=== PATIENT | male | born 1965 | race Caucasian/White ===

== ENCOUNTER → 2024-03-25 07:37 | Outpatient (REF) | payer BC, SELFPAY ==
[2024-03-25 10:38] LABS: PSA, Total - Screen 0.94 ng/ml (0.0-4.0)
== END ==
LOC: REG 07:37
PROVIDERS: ATTENDING PHYSICIAN Internal Medicine
DX: Z12.5 Encounter for screening for malignant neoplasm of prostate (principal)
CPT/HCPCS: 36415; G0103

== ENCOUNTER 2024-04-26 15:28 | Inpatient (IN) | payer BC, SELFPAY ==
[2024-04-26] VITALS (15 sets, daily range): BP systolic 151–212; BP diastolic 80–139; BMI 26.5; BMI 31.4
[2024-04-26 11:45] LABS: Glucose - Point of Care 111 mg/dl (70-99)
--- NOTE | 2024-04-26 11:57 | ED.CVA ---
History of Present Illness
General
Chief Complaint: CVA/TIA Symptoms
Source: patient
Exam Limitations: none
Time Seen by Provider: 04/26/24 11:51
Onset of Stroke Symptoms
Onset of symptoms known: Yes
Date of onset of symptoms: 04/25/24
History of Present Illness
History of Present Illness:
See MDM
Past History
Past History
ED Past Medical History: HTN and Other (Asymmetrical goiter)
ED Past Surgical History: Orthopedic and Other (Thyroid)
Social History
Tobacco: Non-smoker
Alcohol: Occasional
Drug: None
Personal:
Living: with family
Phy Exam
Physical Exam
Physical Exam:
See MDM
Scores
NIH Stroke Score
Level of Consciousness: 0 - Alert
LOC Questions: 0-Answers both correctly
LOC Commands: 0-Performs both correctly
Best Horizontal Gaze: 0-Normal
Visual Esposito: 0=Normal, no visual loss
Facial Palsy: 1=Minor paralysis
Motor - Right Arm: 0=No drift 10 seconds
Motor - Left Arm: 0=No drift 10 seconds
Motor - Right Le-No drift 5 seconds
Motor - Left Le-No drift 5 seconds
Limb Ataxia: 0-Absent
Sensation: 0-Normal
Best Language: 0-No aphasia
Dysarthria: 0-Normal
Extinction and Inattention: 0-No abnormality
Total Score:: 1
Course
Orders/Labs/Results
Orders:
Orders
04/26/24 11:38
Electrocardiogram (*1) Urgent
Reason for Study: Other
Other Reason for Exam: Possible Stroke
Bedside Glucose- Treatment ONCE
Cardiac Monitoring- Treatment ONCE
EKG- Treatment ONCE
IV Insert/Care/Rem.- Treatment PRN
Vital Signs As Directed
Frequency: Other
Weight As Directed
Frequency: Once
Comment: ZERO STRETCHER SCALE FOR ACCURATE WEIGHT
04/26/24 11:51
Labetalol HCl [Trandate] 10 mg IV NOW STA
04/26/24 11:55
Alcohol Urgent
Complete Blood Count/With Diff Urgent
Comprehensive Metabolic Panel Urgent
PTT Urgent
Prothrombin Time Urgent
Troponin I Urgent
04/26/24 11:57
CT Head W/o Iv Contrast Urgent
Comment:
Reason For Exam: Dizzy, headache
Abnormal Lab Results
04/26/24 04/26/24
11:44 11:55
Hct 38.7 L %
(39.0-52.0)
RDW 16.2 H %
(11.5-14.5)
Absolute Monos (auto) 0.9 H 10^3/uL
(0.1-0.6)
Lymphocytes % 19.3 L %
(20.5-51.1)
Monocytes % 14.1 H %
(1.7-9.3)
Glucose 113 H mg/dl
(70-99)
POC Glucose 111 H mg/dl
(70-99)
04/26/24 11:55
04/26/24 11:55
Vital Signs
Initial and Last Documented VS:
Initial Vital Signs
Temp Pulse Resp BP Pulse Ox
99.2 F 110 20 206/134 98
04/26/24 11:26 04/26/24 11:26 04/26/24 11:26 04/26/24 11:26 04/26/24 11:26
Last Documented Vital Signs
Temp Pulse Resp BP Pulse Ox
99.2 F 74 21 193/102 97
04/26/24 11:26 04/26/24 13:00 04/26/24 12:00 04/26/24 12:01 04/26/24 12:00
MDM/Problems Addressed
Differential Diagnosis Includes:
HPI and MDM Narrative:
59-year-old male presenting for evaluation of headache and dizziness. Patient states it started yesterday around 3:00 PM or so. I questioned his elevated blood pressure today. Patient states he does not take his medicines. Patient states he is
having trouble walking because he feels 'drunk'
Patient found to be hypertensive. Will give dose of labetalol with concern for hypertension emergency. Will obtain CT to rule out intracranial hemorrhage
Physical exam
General: Well appearing and non-toxic
HEENT: protecting airway. EOMI. Negative Talihina-Hallpike
Neck: supple
CV: No evidence of cyanosis. Regular rate and rhythm
Resp: No accessory muscle use
Abd: Non-distended
Extremities: No deformities
Neuro: alert. Normal finger-nose bilaterally
Psych: Normal affect
Skin: Intact
Problems Addressed including Acute and Chronic Conditions affecting care:
1. Dizziness
Acuity: acute
Prognosis: unstable
Details: Potentially in setting of hypertension emergency or possibly stroke or bleed. Will obtain CT head
2. HTN
Acuity: acute
Prognosis: unstable
Details: Given the concern for hypertension emergency, patient given IV labetalol
Updates
CT does show age-indeterminate stroke in the right. We attempted to ambulate the patient but he has significant left-sided weakness when he tries to walk and appears ataxic. Will admit for further evaluation. Repeat blood pressure after IV
labetalol 170s/90s
Differential Diagnosis (but not limited to): Intracranial hemorrhage, hypertension emergency, CVA
Testing considered: CTA head
Drug therapy (if applicable): OTC meds, please see d/c instruction regarding Rx drugs
Amount and/or Complexity of Data Reviewed
Clinical info obtained from: Patient
External data reviewed: N/A
Labs I independently reviewed (but not limited to): Troponin and electrolytes within normal limits
Radiology: The CT scan was personally and independently reviewed. In addition, official CT report reviewed.
Pulse Ox: not hypoxic
EKG independently reviewed: Sinus rhythm, normal axis, no STEMI
Key Punch Teacher: sinus rhythm
Critical Care: The high probability of a clinically significant, sudden or life threatening deterioration of the neuro cardiovascular system(s) required my full and direct attention, intervention and personal management. The aggregate critical care
time was 33 minutes. This time is in addition to time spent performing reported procedures but includes the following:
[x] Data Review and interpretation
[x] Patient assessment and monitoring of vital signs
[x] Documentation
[x] Medication orders and management
Risk of Complication:
Social Determinants of health: Good social support
Discussed with other providers: Hospitalist
Escalation of Care includes Admit/Obs: Given the concern for ataxia, stroke and hypertension emergency, will admit for further workup
Occasional wrong word or 'sound a like' substitutions may have occurred due to the inherent limitations of voice recognition software. Read the chart carefully and recognize, using context, where substitutions have occurred.
*Critical Care Note
Total Time (30-74mins, 75-104mins- exclusive of procedures): 33 min
ED Attending Note
-
Portions of this chart may have been created with voice recognition software.� Occasional wrong word or��sound alike� substitutions may have occurred due to the inherent limitations of voice recognition software.
Discharge Plan
Departure
Patient Disposition: Admit
Date of Disposition: 04/26/24
Time of Disposition: 13:28
Admit to: Telemetry
Presentation/result/management discussed w/ accepting MD/DO: Hospitalist
Discharge Problem:
Ataxia, HTN (hypertension)
Prescriptions:
No Action
No Current Medications
0
Referrals:
Lili Neff MD [Family Provider] -
Interventions
Interventions:
ED- Pulmonary Assessment Last Done: 04/26/24 12:08
ED- Neurological Assessment Last Done: 04/26/24 12:08
ED- Cardiac Assessment Last Done: 04/26/24 12:08
Discharge Date and Time
Print Language: GEORGIAN
[2024-04-26] MEDS: TRANDATE 10 MG IV (12:01)
--- NOTE | 2024-04-26 12:03 | PHANOTE ---
Addendum entered by Florence Connell 04/26/24 15:18:
called pharmacy and medication filled
on 10/22/23 lisinopril/hctz 2024 daily, aspirin 325mg daily, Celebrex 100mg bid prn, Lipitor 40mg daily and hydralazine 25mg tid
06/17/2023 Benicar 20mg daily
Original Note:
med rec note- patient family provide a list from 2022:
Toprol xl 50mg daily
Allopurinol 300mg daily
Hydralazine 25mg?
Lasix 40mg daily
Lexapro 40mg daily
Celebrex 200mg prn
folic acid 1mg daily
Benicar 20mg daily
Mobic 15mg prn
Spoke to patient he stated that is not taking anything and no medication.
[2024-04-26 12:06] LABS: % Basophils 0.5 % (0-2); % Eosinophils 0.6 % (0-6); % Immature Granulocytes 0.2 % (0-0.5); % Lymphocytes 19.3 % (20.5-51.1); % Monocytes 14.1 % (1.7-9.3); % Neutrophils 65.3 % (42.2-75.2); Absolute Lymphocytes 1.2 10^3/uL (1.2-3.4); Absolute Monocytes 0.9 10^3/uL (0.1-0.6); Absolute Neutrophils 4.1 10^3/uL (1.4-6.5); Hematocrit 38.7 % (39.0-52.0); Hemoglobin 13.4 g/dL (13.0-18.0); Mean Corp Hgb Conc. 34.6 g/dL (33.0-37.0); Mean Corpuscular Hgb 27.7 pg (27.0-31.0); Mean Platelet Volume 8.6 fL (7.4-10.4); Nucleated Red Blood Cells % 0 % (-); Platelet Count 202 10^3/uL (130-400); Red Blood Cell Count 4.84 10^6/uL (4.70-6.10); Red Cell Dist. Width 16.2 % (11.5-14.5); White Blood Cell Count 6.3 10^3/uL (4.8-10.8)
[2024-04-26 12:18] LABS: ALT (SGPT) 30 U/L (0-50); AST (SGOT) 35 U/L (17-59); Albumin 4.9 g/dl (3.5-5.0); Alkaline Phosphatase 80 U/L (38-126); Blood Urea Nitrogen 18 mg/dl (9-20); Calcium 9.6 mg/dl (8.4-10.2); Carbon Dioxide 22 mmol/L (22-30); Chloride 104 mmol/L (98-107); Estimated Creatinine Clearance 82 ml/min; Glucose 113 mg/dl (70-99); Potassium 4.3 mmol/L (3.5-5.1); Sodium 136 mmol/L (135-145); Total Bilirubin 0.6 mg/dl (0.2-1.3); Total Protein 7.5 g/dl (6.3-8.2); eGFR > 60.00
[2024-04-26 12:20] LABS: Alcohol None Detected
[2024-04-26 12:21] LABS: INR 0.98
[2024-04-26 12:22] LABS: APTT 24.8 Sec (23.4-35.0)
[2024-04-26 12:28] LABS: Troponin I < 0.012 ng/ml
--- NOTE | 2024-04-26 14:37 | HPS.HSE ---
Family Physician
-
Family Physician: Lili Neff MD
Chief Complaint
-
Dizziness started a week
History of Present Illness
59 male with a history of noncompliance, uncontrolled hypertension and high cholesterol who is presenting with a 1.5-day history of left-sided weakness and dizziness that began yesterday while at work. Thought it was related to the heat therefore
went home and slept when he woke up this morning he was driving to work symptoms reoccurred and this time associated left-sided weakness dizziness and when he got out of his car he felt like he was falling to the left when ambulating. Unsteady on
his feet. No history of this in the past. Quit smoking 30 years ago. Drinks 2 beers every couple of days. No drug use history noted.
Mother no medical condition. Father colorectal cancer, heart disease
Past surgical history hip repair�left-sided November 03
He is supposed to be on
Toprol 50 mg daily
Allopurinol 300 mg daily
Hydralazine 25 mg unclear as to frequency
Lasix 40 mg daily
Lexapro 40 mg daily
Celebrex 200 mg as needed
Folic acid 1 mg daily
Benicar 20 mg daily
Mobic 15 mg as needed
-However he takes these medications infrequently
In the ED he was found to have a blood pressure in the 2 trades improved after 1 dose of 10 mg IV labetalol. . CBC unremarkable. BMP unremarkable. EKG sinus rhythm with a SADNI of 158, without significant ST-T wave Changes. CT brain small
age-indeterminate infarct within the right basal ganglia extending to the javier radiata. Mild periventricular chronic white matter disease.
Works as a vehicle painter taking really
Medical History
Past Medical History
Past Medical History: Reports HTN and Hypercholesterolemia
Past Surgical History: Reports Orthopedic
Social History
Tobacco: Former Smoker
Alcohol: Occasional
Drug: None
Family History
Family History: CAD and Other (father crc)
Allergies / Home Medications
Allergies reflects when Allergies were last updated in [facility].
Home Medications with original date entered in [facility]
Allergy/Medication List:
Allergies
Allergy/AdvReac Type Severity Reaction Status Date / Time
No Known Allergies Allergy Unverified 05/05/13 22:51
Home Medications
No Meds [No Current Medications] 04/26/24
Review of Systems
-
A 12 point ROS was completed and negative except as noted: Yes
Physical Exam
Vital Signs
Vital Signs
Temp Pulse Resp BP Pulse Ox
99.2 F 74 20 177/109 96
04/26/24 11:26 04/26/24 14:00 04/26/24 14:00 04/26/24 14:00 04/26/24 14:00
NAD, resting comfortably in bed
Scleral anicteric
Moist mucous membranes
No JVD
CTA bilateral
Normal S1-S2 no murmurs
Soft nontender nondistended bowel sounds active
No peripheral pitting edema
Moves extremities spontaneously
AAOx3, uvula deviated to left side, unable to shrug left shoulder, left side of [id number] dysmetria noted, poor [id number], 4/5 motor strength in left side weaker than the right side. Able to open left eyelid easily when squeezed tightly
Physical Exam
General: Well Developed
Laboratory Results
-
04/26/24 11:55
04/26/24 11:55
Laboratory Results
PT 13.0 Sec (11.4-14.6) 04/26/24 11:55
INR 0.98 04/26/24 11:55
APTT 24.8 Sec (23.4-35.0) 04/26/24 11:55
Total Bilirubin 0.6 mg/dl (0.2-1.3) 07/17/24 11:55
AST 35 U/L (17-59) 04/26/24 11:55
ALT 30 U/L (0-50) 04/26/24 11:55
Alkaline Phosphatase 80 U/L (38-126) 04/26/24 11:55
Troponin I < 0.012 ng/ml 04/26/24 11:55
Impression/Plan
-
Acute CVA/TIA
��Not a TNK candidate�symptomatology began more than 24 hours
� Obtain MRI brain and MRA brain
� Lipid profile A1c
� 2D echo with bubble study
� Allow for permissive hypertension
� Neurology consulted
� Neurovascular checks
� Aspirin load as this was not done in the ER followed by daily 81 mg
� Plavix load per neurology recommendations followed by 75 mg daily
� Lipitor high intensity
� Monitor on telemetry
� Stroke protocol
� business continuity coordinator
� PT OT
Hypertensive urgency
� Allow for permissive hypertension, decrease MAP by 25% in the next 23hrs
� Start HCTZ low-dose
� Monitor on tele
Non-compliance
� Stressed medication compliance
DVT ppx
� LMWH
[2024-04-26] MEDS: ORETIC 12.5 MG PO (15:53)
[2024-04-26] MEDS: ASPIRIN 325 MG PO (15:53)
[2024-04-26] MEDS: PLAVIX 300 MG PO (16:00)
[2024-04-26] MEDS: LIPITOR 40 MG PO (16:53)
[2024-04-26] MEDS: COZAAR 25 MG PO (16:53)
--- NOTE | 2024-04-26 17:14 | PTCARENOTE ---
Received patient from ED on stretcher. Patient ambulated to bed with assistance x1. He has left sided weakness and is unsteady. Patient has language barrier. He speaks Turkish but knows some South Sudanese. NIH score of 3 for facial droop and ataxia
left side. MRI called for him as soon as he came to unit for MRI of brain. Obtained patient's BP prior to going to MRI bp 172/111. Medicated patient with 25 mg labetalol po as ordered prior to transporting patient to MRI.
[2024-04-26] MEDS: LOVENOX 40 MG SC (18:28)
--- NOTE | 2024-04-26 19:00 | PTCARENOTE ---
Patient back from MRI BP 210/103. Dr. Urban notified. Order obtained for IV hydralazine. If BP does not improve Dr. Urban wants patient to be transferred to ICU.
[2024-04-26] MEDS: APRESOLINE 10 MG IV (19:33)
[2024-04-26] MEDS: FLUSH (NSS) 1 FLUSH IV (19:33)
[2024-04-26 21:20] LABS: ALT (SGPT) 28 U/L (0-50); AST (SGOT) 33 U/L (17-59); Albumin 4.6 g/dl (3.5-5.0); Alkaline Phosphatase 77 U/L (38-126); Blood Urea Nitrogen 17 mg/dl (9-20); Calcium 9.7 mg/dl (8.4-10.2); Carbon Dioxide 23 mmol/L (22-30); Chloride 101 mmol/L (98-107); Estimated Creatinine Clearance 93 ml/min; Glucose 114 mg/dl (70-99); Potassium 3.8 mmol/L (3.5-5.1); Sodium 136 mmol/L (135-145); Total Bilirubin 0.9 mg/dl (0.2-1.3); Total Protein 7.3 g/dl (6.3-8.2); eGFR > 60.00
[2024-04-26 23:29] LABS: Glucose - Point of Care 131 mg/dl (70-99)
[2024-04-27] VITALS (16 sets, daily range): BP systolic 113–163; BP diastolic 63–132; PULSE 88; O2SAT 96–97; BMI 31.1
--- NOTE | 2024-04-27 03:55 | PTCARENOTE ---
NIHS 6 overnight;Left facial droop/left arm& leg drift/ataxia/aphasia/ very mild dysarthria. Pt able to communicate in Azeri, but has difficultly with certain words. Denies any pain. Pt ambulated to with two person assist; gait unsteady. SB/NSR
on tele; hypertensive urgency resolved shortly after change of shift. Plan for Echo, PT/OT/ST, neuro c/s. Call antonio and tray table left within reach. Bed alarm set for safety.
[2024-04-27 04:49] LABS: Hematocrit 39.9 % (39.0-52.0); Hemoglobin 13.7 g/dL (13.0-18.0); Mean Corp Hgb Conc. 34.3 g/dL (33.0-37.0); Mean Corpuscular Hgb 27.7 pg (27.0-31.0); Mean Corpuscular Volume 80.6 fL (80.0-94.0); Mean Platelet Volume 8.9 fL (7.4-10.4); Platelet Count 186 10^3/uL (130-400); Red Blood Cell Count 4.95 10^6/uL (4.70-6.10); Red Cell Dist. Width 16.3 % (11.5-14.5); White Blood Cell Count 5.7 10^3/uL (4.8-10.8)
[2024-04-27 05:10] LABS: HDL Cholesterol 57 mg/dl; LDL Cholesterol, Calculated 128 mg/dl; Total Cholesterol 219 mg/dl (50-199); Triglyceride 174 mg/dl (10-149); Very Low Density Lipoprotein 34 mg/dl (0-30)
--- NOTE | 2024-04-27 07:51 | PTCARENOTE ---
Patient left arm and left leg are weaker this morning. VS stable overnight. Last BP 155/83. NIH score of 6 at change of shift. Patient remains NPO except for meds and sips. Awaiting speech evaluation. Bed alarm on. Patient alert and oriented
with mild aphagia and language barrier.
--- NOTE | 2024-04-27 08:10 | CON.NEURO4 ---
Consultation - Neurology 4
-
CONSULTING PHYSICIAN: Diogo Gonsales
REFERRING PHYSICIAN: Hospitalist
DICTATED BY: Diogo Gonsales
DATE/TIME OF REQUEST: 04/27/24
DATE/TIME OF CONSULTATION: 04/27/24
Reason for Consultation: Stroke
History of Present Illness:
The patient is a 59-year-old right-handed man with past ministry of hypertension and hyperlipidemia presenting the hospital initially due to headache and dizziness and then developed significant left arm leg and face weakness, symptoms started in
the afternoon of 04/25 initially while working outside in hot weather and these improved but then recurred again but not just dizziness but also left-sided arm leg and face weakness.
No history of stroke or unusual headaches or head or neck trauma recently. He does relate a sibling had had around 3 strokes but not sure what age. He has been intermittently compliant but generally has not been taking medications for blood
pressure does not take any anticoagulants or antiplatelets at baseline.
Currently denies any headache.
Past Medical History: Hypertension, hyperlipidemia
Surgical History: Left hip repair October 2023
Family History: Family history of 3 strokes in a brother but not sure at what age
Social History: and lives with his , working painting and detailing cars, rare alcohol 2 beers about 1-2 times a week, had previously used heavy amount and he stopped this, quit cigarette use about 25-30 years ag o
Allergies: No known drug allergies
Review of Symptoms:
Patient denies any fever, headache, chest pain, shortness of breath, GI or symptoms.
Physical Exam:
Middle-age man appears a stated age well-appearing no signs of head or neck trauma eyes are clear oropharynx is clear heart rate regular breathing unlabored abdomen soft nontender no lower extreme edema rash or joint deformity seen
Neurologic Examination:
Mental status unremarkable good historian and answers all questions appropriately via Lithuanian vaccine customer representative
Cranial nerve examination shows moderate dysarthria and obvious left-sided facial weakness, extraocular movements are full, there is mild left eye ptosis, visual bustamante are intact confrontation bilaterally
Motor examination shows some minimal 3/5 effort against gravity of shoulder abduction arm flexion but at times is only 2/5 strength of left, similarly in the left leg there is minimal effort at x 3/5 against gravity of the left leg but at other
times and only able to give 2/5 movement of the left hip and thigh abduction/abduction.
Intact grossly to light touch noxious stimulation and pinprick
Reflexes 2+ symmetric biceps triceps brachialis patella and Achilles Babinski is negative
Unable to evaluate finger-nose testing on the left arm due to weakness
Neuro Imaging:
Brain MRI/MRA head neck: with acute right-sided pontine ischemic stroke without any hemorrhage, there is a chronic right basal ganglia significant far, mild chronic small vessel ischemic disease in the white matter of the hemispheres, no
significant intracranial occlusions or stenosis is seen, no significant carotid stenosis seen
Impressions
1. Acute right-sided pontine ischemic stroke as cause of his presenting symptoms. Presumed etiology is small vessel disease given uncontrolled risk factors of hypertension as his predominant risk factor. Absence of significant large vessel
atherosclerosis on CTA of the head and neck argues against large vessel atherosclerosis as cause, location and appearance is not typical for cardioembolic stroke
2. Not uncommon to have worsening of symptoms over time of lacunar type strokes in the kennedy, oftentimes is the natural history of these types of strokes. Do not suspect hemorrhagic conversion and CTA with no severe vertebrobasilar stenosis
3. Uncontrolled hypertension at baseline
Recommendations:
1. For blood pressure management would aim for less than 180 systolic for maximum blood pressure but would avoid rapid normalization of blood pressures given the recent ischemic stroke and baseline uncontrolled hypertension, acceptable to go slow
in getting blood pressures to a lower range
2. NIH and neurologic check
3. Speech therapy aspiration precaution
4. Mobilization as able physical and Occupational Therapy evaluations anticipate will be acute rehabilitation candidate
5. Emphasized the importance of high blood pressure medication compliance as main contributor to ischemic stroke
6. Aspirin and clopidogrel DAPT therapy for total of 21 days and then discontinue clopidogrel and continue on aspirin monotherapy alone indefinitely
7. Atorvastatin 40 mg daily, LDL noted to be 128 proceed less than 70 for long-term goal
8. Cardiac telemetry and TTE, do not anticipate he will need further cardiac monitoring after hospitalization
Will follow
Discussed patient care with: Patient, hospitalist
[2024-04-27] MEDS: PLAVIX 75 MG PO (08:26)
[2024-04-27] MEDS: COZAAR 25 MG PO (08:26)
[2024-04-27] MEDS: LOW STRENGTH ASPIRIN 81 MG PO (08:26)
[2024-04-27 10:18] LABS: Glycohemoglobin (HgbA1c) 6.1 % (4.0-5.6)
--- NOTE | 2024-04-27 11:36 | CM ---
Slovenian/Estonian speaking patient with Dx Acute CVA, Hypertensive urgency. Room air. PT & OT recommend acute rehab.
Met with patient, and spoke with Janelle and daughter Xiomara ( L&D nurse) by phone;
the patient was A/O with some limited Estonian but was conversational.
the patient resides with his in a 2 story townhouse.
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
The patient was independent in ADLs and ambulation without using any assistive devices.
DME - RW, SPC, w/c, raised toilet seat, crutches
VN - prior VN, unsure of agency
No prior SNF.
PCP - Lili Neff
Pharmacy - [facility]
stated patient was recently on disability for his hip surgery. She had questions about reapplying for short term or long term care phlebotomist disability. CM advised her to contact patient's employer and that PCP will most likely be helpful in completing
disability paperwork.
Discussed patient's current mobility as per PT/OT. Patient, & daughter are possibly interested in [facility].
Message to Dr Jasbir Urban requesting Physiatry Consult.
Spoke with Fredis Jorge Liaison; discussed patient status, referral placed.
Plan follow up after seen by Physiatry.
--- NOTE | 2024-04-27 11:37 | PTOTSP ---
RESERVATIONS MANAGER Evaluations
Suspect oral/pharyngeal stages of swallowing WFL based on clinical bedside swallowing evaluation. Patient reported a history concerning for reflux.
Family report mild motor speech changes in Kiswahili (primary language). Language (reading/writing/speaking/understanding) in Kiswahili was functional for tasks assessed with use of straight pin making machine operator.
Recommend:
1. Regular, Thin Liquids
2. Medications as best tolerated
3. Strategies: upright to 90 degrees, check for pocketing on left and use liquid wash/clean digital or lingual sweep to clear, reflux precautions
4. Will follow up at the acute care level for dysphagia tx and to test higher level speech/language/cognition as appropriate.
--- NOTE | 2024-04-27 13:54 | W.PN.HOSP.TC ---
Today's Communication/Plan
-
Personally discussed with neurology worsening left-sided upper extremity weakness. Likely secondary to basal ganglia infarct. Typically continues to get worse until starts getting better. If noted any further changes may need to repeat CT scan to
rule out evolving/bleed.
Acute CVA/TIA
��Not a TNK candidate�symptomatology began more than 24 hours
� MRI/A as below
� A1c 6.1
� 2D echo with bubble study pending
� Allow for permissive hypertension
� Neurology following
� Neurovascular checks, aspiration precautions
� Daily 81 mg
� Plavix 75 mg daily
� Lipitor high intensity
� Monitor on telemetry
� PT OT rec AIR, PMnR consulted
Hypertensive urgency
� Allow for permissive hypertension, decrease MAP by 25% in the next 23hrs
� Started HCTZ low-dose and ARB
� Monitor on tele
Non-compliance
� Stressed medication compliance
DVT ppx
� LMWH
MRI Brain
IMPRESSION: There is a focal area of acute to subacute infarction within the mid to anterior aspect of the right paramedian kennedy.
Region of old infarction involving the right lentiform nucleus and javier radiata. 2 mm focus of old infarction versus prominent perivascular space in the posterior aspect of the left lentiform nucleus.
Two foci of decreased signal intensity on T2 gradient echo sequence, compatible with old hemorrhage as described.
Mild to moderate atrophy, advanced for the patient's age of 59 years. Mild to moderate T2 and FLAIR white matter hyperintensities, commonly seen with aging and usually attributed to small vessel ischemic disease
MRI Neck
IMPRESSION: There is mild motion artifact, slightly limiting resolution.
No significant narrowing identified involving the common carotid arteries, carotid bulbs, or proximal internal carotid arteries bilaterally. No significant narrowing of the cervical or intracranial portions of the internal carotid arteries
bilaterally.
No significant narrowing of the vertebral or basilar arteries.
Percent stenosis is calculated using NASCET criteria.
MRA Head
IMPRESSION: No significant narrowing involving the anterior circulation.
Tortuosity of the superior right vertebral artery. No significant narrowing of the vertebral or basilar arteries.
Asymmetric diminished flow within the distal P2 and P3 branches of the right posterior cerebral artery when compared to the left. Diminished flow within the posterior distal branches of the posterior cerebral arteries bilaterally
Head CT
IMPRESSION:
Small, age-indeterminate infarct within the RIGHT basal ganglia extending into the javier radiata.
Mild periventricular chronic white matter disease.
Assessment / Plan
Assessment / Plan
NAD, resting comfortably in bed
Scleral anicteric
Moist mucous membranes
No JVD
CTA bilateral
Normal S1-S2 no murmurs
Soft nontender nondistended bowel sounds active
No peripheral pitting edema
Moves extremities spontaneously
AAOx3, uvula deviated to left side, unable to shrug left shoulder, slight movement of left arm, was able to life left leg up slightly. 4/5 motor strength in left side weaker than the right side. Able to open left eyelid easily when squeezed tightly
Anticipated Discharge: 24 - 48 hours
Subjective/Interval History
-
Date of Service: April 27, 2024
Seen and examined. Sitting in bedside chair eating breakfast when I saw him.
Objective Data
-
Labs:
Laboratory Results
04/27/24
04:26
WBC 5.7
Hgb 13.7
Hct 39.9
Plt Count 186
Vital Signs:
Vital Signs
Temp Pulse Resp BP Pulse Ox
98.1 F 92 16 163/88 96
04/27/24 11:42 04/27/24 10:30 04/27/24 10:30 04/27/24 10:27 04/27/24 10:30
--- NOTE | 2024-04-27 14:32 | PTCARENOTE ---
Echo with Bubble study completed per protocol, pt tolerated procedure well. Left Antecubital Iv site clear, no redness, no edema. Procedure completed with aseptic technique. No change in status.
--- NOTE | 2024-04-27 14:33 | CARDSERVLU ---
Echocardiogram with Lumason completed after protocol screening completed. Allergies verified.
Patent IV site: _Left antecubital IV site clear____
IV site flushed with 0.9% NaCl pre and post administration.
Diluted bolus method utilized to enhance visualization of ventricular blanco.
Total volume given: _6___ mL
Patient tolerated all procedures well without complications.
Note- Lumason given after Bubble Study, Bubbles had disapated prior to Lumason Given IV. Pt tolerated procedure well.
[2024-04-27] MEDS: LOVENOX 40 MG SC (17:43)
[2024-04-27] MEDS: LIPITOR 40 MG PO (17:43)
[2024-04-27] MEDS: NSS 500 IV (18:18)
--- NOTE | 2024-04-27 18:45 | PTCARENOTE ---
Patient tachycardic this afternoon 100-129, patient also diaphoretic. Patient denied having any symptoms. MD made aware. ECG obtained and order obtained for NSS bolus. Patient HR now in the 90's, last BP 147/91. Patient currently resting in
bed. in room at bedside.
--- NOTE | 2024-04-27 20:19 | PTCARENOTE ---
[facility] 7. Traffic Administrator #[id number] utilized for translation. Pt drinks 2-3 times a week beer currently, but does admit to a history of 'alcohol problems from family issues'. Pt reports he never had ETOH withdrawl symptoms. Reminded on aspiration
precautions, and plan of care. Pt did not have any questions for me at this time. Reminded to use the call antonio and fall precautions. Call antonio and tray table within reach.
[2024-04-28] VITALS (14 sets, daily range): BP systolic 118–160; BP diastolic 79–99; PULSE 114; O2SAT 94–95; BMI 30.9
--- NOTE | 2024-04-28 07:57 | PTCARENOTE ---
Pt AAO aspiration precautions in place lungs are diminished .Pt on 2lO2 during night hours due to being apnic. L facial droopL sided weakness.
--- NOTE | 2024-04-28 08:44 | W.PN.NEURO.1 ---
Today's Communication / Plan
-
-Aspirin clopidogrel DAPT therapy for 21 days, end date of clopidogrel 05/16 and continue on aspirin
-Atorvastatin 40 mg daily, LDL 128
-Pursue slow improvement of blood pressures, aiming for less than 180 systolic as maximum, given longstanding uncontrolled hypertension would avoid aggressive IV treatments of hypertension unless greater than 180 or 200 systolic
-Speech, PT/OT, anticipate acute rehab candidate PMR consult
-Aspiration precautions
-No need for cardiac monitoring after discharge, continue telemetry while inpatient
-Neurology follow up in 4-6 weeks outpatient
Will follow as needed call with questions and concerns
Neuro Assessment/Plan
Assessment
Acute right sided pontine ischemic infarction, chronic right basal ganglia infarct most likely asymptomatic from this
LDL 128
Some evidence of intracranial atherosclerosis on COMBAT CONTROL MANAGER arteries bilaterally on MRA head, asymptomatic from this
TTE with LVH supporting uncontrolled hypertension
Etiology of stroke is presumed small vessel disease from uncontrolled hypertension
Has 2/5 to 3/5 at best strength on left arm and leg, will show improvement with time but may have long term care social worker weakness on left side
Subjective/Objective
Subjective Data
Date of Service: April 28, 2024
No acute events, no complaints, no chest pain or dyspnea, no headache, tolerating diet
Objective Data
Vital Signs
Temp Pulse Resp BP Pulse Ox
98.2 F 61 15 138/85 95
04/28/24 07:10 04/28/24 06:00 04/28/24 06:00 04/28/24 06:00 04/28/24 05:45
Lab Results
04/27/24 04:26
04/26/24 20:55
PT 13.0 Sec (11.4-14.6) 04/26/24 11:55
INR 0.98 04/26/24 11:55
APTT 24.8 Sec (23.4-35.0) 04/26/24 11:55
Sodium 136 mmol/L (135-145) 04/26/24 20:55
Potassium 3.8 mmol/L (3.5-5.1) 04/26/24 20:55
BUN 17 mg/dl (9-20) 04/26/24 20:55
Glucose 114 mg/dl (70-99) H 04/26/24 20:55
Calcium 9.7 mg/dl (8.4-10.2) 04/26/24 20:55
LDL Cholesterol, Calc 128 mg/dl 04/27/24 04:26
Patient Allergies
No Known Allergies Allergy (Unverified 05/05/13 22:51)
Review of Systems
-
History Source: Patient
All other systems: Reviewed and negative
Constitutional: No Symptoms
EENT: No Symptoms Reported
Respiratory: No Symptoms
Cardiac: No Symptoms
Abdomen/GI: No Symptoms
Genitourinary: No Symptoms
Musculoskeletal: No Symptoms
Skin: No Symptoms
Neuro: Weakness
Endocrine: No Symptoms
Hematologic / Lymphatic: No Symptoms
Allergy / Immunology: No Symptoms
Physical Exam
-
General: Comfortable
Eyes: No Ptosis
HEENT: Normocephalic
Neck: No Bruits Bilaterally
Respiratory: Clear to Auscultation
Cardiac: Regular Rhythm
GI: Normal Bowel Sounds
Skin: Unremarkable
Extremities: No Clubbing
Psych: Unremarkable
Extended Neurological Exam
Mood & Affect: Mood Unremarkable and Affect Unremarkable
Attention Span & Concentration: Awake, Alert and Interactive
Memory: Unremarkable
Tremor: Hand Tremor Absent
Involuntary Movement: None
Speech: Dysarthric; Negative Expressive Aphasia or Receptive Aphasia
Cranial Nerve II: Left Eye: Pupillary Reactivity Unremarkable and Pupillary Size Unremarkable
Cranial Nerve II: Right Eye: Pupillary Reactivity Unremarkable and Pupillary Size Unremarkable
Cranial Nerves III, IV, : Extraocular Movement: Extraocular Movement Full in all Directions
Cranial Nerve XII: Tongue Protusion: Midline
Muscle Strength, Overall: Other (Left leg 3/5 hip flexion, left arm barely 3/5 left shoulder abduction and arm flexion)
Pronator Drift: Drift in Left Upper Extremity and Drift in Left Lower Extremity
Deep Tendon Reflexes: Trace Throughout
Data Reviewed
-
CT Head: Report Reviewed and Image Reviewed
MRI Head: Report Reviewed and Image Reviewed
MRA Head: Report Reviewed and Image Reviewed
MRA Neck: Report Reviewed and Image Reviewed
Labs: Report Reviewed
[2024-04-28] MEDS: PLAVIX 75 MG PO (08:46)
[2024-04-28] MEDS: LOW STRENGTH ASPIRIN 81 MG PO (08:46)
[2024-04-28] MEDS: COZAAR 25 MG PO (08:46)
--- NOTE | 2024-04-28 10:28 | PTCARENOTE ---
Pt OOB to chair ate breakfast . Pleasant and cooperative
--- NOTE | 2024-04-28 14:26 | W.PN.HOSP.TC ---
Today's Communication/Plan
-
as above
Assessment / Plan
Assessment / Plan
NAD, resting comfortably in bed
Scleral anicteric
Moist mucous membranes
No JVD
CTA bilateral
Normal S1-S2 no murmurs
Soft nontender nondistended bowel sounds active
No peripheral pitting edema
Moves extremities spontaneously
AAOx3, uvula deviated to left side, unable to shrug left shoulder, slight movement of left arm, was able to life left leg up off the ground and hold it about 1ft. 4/5 motor strength in left side weaker than the right side. Able to open left eyelid
easily when squeezed tightly
acute cva
mri confimed cva
continue dapt x3 weeks
per neuro stop plavix on 05/16
conitnue hi statin
pt.ot rec air
htn contineu antihypertensives
Non-compliance
Stressed medication compliance
DVT ppx
LMWH
MRI Brain
IMPRESSION: There is a focal area of acute to subacute infarction within the mid to anterior aspect of the right paramedian kennedy.
Region of old infarction involving the right lentiform nucleus and javier radiata. 2 mm focus of old infarction versus prominent perivascular space in the posterior aspect of the left lentiform nucleus.
Two foci of decreased signal intensity on T2 gradient echo sequence, compatible with old hemorrhage as described.
Mild to moderate atrophy, advanced for the patient's age of 59 years. Mild to moderate T2 and FLAIR white matter hyperintensities, commonly seen with aging and usually attributed to small vessel ischemic disease
MRI Neck
IMPRESSION: There is mild motion artifact, slightly limiting resolution.
No significant narrowing identified involving the common carotid arteries, carotid bulbs, or proximal internal carotid arteries bilaterally. No significant narrowing of the cervical or intracranial portions of the internal carotid arteries
bilaterally.
No significant narrowing of the vertebral or basilar arteries.
Percent stenosis is calculated using NASCET criteria.
MRA Head
IMPRESSION: No significant narrowing involving the anterior circulation.
Tortuosity of the superior right vertebral artery. No significant narrowing of the vertebral or basilar arteries.
Asymmetric diminished flow within the distal P2 and P3 branches of the right posterior cerebral artery when compared to the left. Diminished flow within the posterior distal branches of the posterior cerebral arteries bilaterally
Head CT
IMPRESSION:
Small, age-indeterminate infarct within the RIGHT basal ganglia extending into the javier radiata.
Mild periventricular chronic white matter disease.
Anticipated Discharge: Within 24 hours
Subjective/Interval History
-
Date of Service: April 28, 2024
seen and examined. no new complaints. no acute ovenrifghgt events
sitting in bedside chairs
Objective Data
-
Vital Signs:
Vital Signs
Temp Pulse Resp BP Pulse Ox
98.4 F 76 15 144/94 95
04/28/24 11:10 04/28/24 08:46 04/28/24 06:00 04/28/24 08:46 04/28/24 05:45
I&O
04/27/24 04/28/24 04/29/24
06:59 06:59 06:59
Intake Total 1475 / 1475
Balance 1475 / 1475
--- NOTE | 2024-04-28 15:02 | CM ---
Addendum entered by Hellen Scherer RN 04/28/24 15:48:
Spoke with , Janelle; she agrees to [facility] tomorrow once insurance approves.
[facility] can accept tomorrow once insurance approves. Please call Renuka at [facility] (ph [phone]) once auth obtained. The ph for report [phone], fax [phone].
Plan [facility] Sat 04/29 once insurance approves.
Original Note:
Sami/Ethiopian speaking patient with Dx Acute CVA, Hypertensive urgency. Room air. PT & OT recommend acute rehab. Physiatry Consult pending.
Spoke with [facility]; initiated request for [facility] for Sat 04/29, reference #: request ID [id number]. Clinicals can be faxed to [phone]---> sent via Active Fax.
Spoke with [facility]; they are able to accept the patient once physiatry consult is ordered/physiatry sees patient and insurance auth is completed.
Phone calls to patient's Janelle and daughter Xiomara; left messages requesting callback for d/c planning.
Plan follow up with family about [facility].
Plan probable [facility] once physiatry eval is completed and insurance approves.
[2024-04-28] MEDS: LIPITOR 40 MG PO (17:30)
[2024-04-28] MEDS: LOVENOX 40 MG SC (17:30)
--- NOTE | 2024-04-28 20:28 | PTCARENOTE ---
Pt received resting in bed. AAOx3. Speaks Luxembourgish but says 'I can speak 50/50 Hong Konger.' NIH/Neuro checks completed as documented. Left side weakness LILIA/LLE. Left facial droop observed. No asphasia noted. Only word unable to speak at first was
'feather' d/t not knowing what the word was. Once pt was told had no problem repeating word even with 10 in recall. Daughter Xiomara in room with pt and able to have full conversation with pt without difficulty or issue. VSS. SBP 120's. Afebrile. SR on
CM. POX 97% on RA. Pt repositioned. Rest of assessment as documented. Call antonio within reach on right side. Will continue to monitor.
[2024-04-29] VITALS (13 sets, daily range): BP systolic 118–164; BP diastolic 64–129; PULSE 106
[2024-04-29] MEDS: COZAAR PO (09:27)
[2024-04-29] MEDS: COZAAR 12.5 MG PO ×2 (09:36→12:34)
[2024-04-29] MEDS: PLAVIX 75 MG PO (09:36)
[2024-04-29] MEDS: LOW STRENGTH ASPIRIN 81 MG PO (09:36)
--- NOTE | 2024-04-29 10:36 | W.PN.HOSP.TC ---
Today's Communication/Plan
-
losartan dose reduced
cotninue pt/ot
continue dapt x3 weeks follow by only asa per neuro
contineu statin
pt/ot rec AIR
pmnr following
Assessment / Plan
Assessment / Plan
NAD, resting comfortably in bed
Scleral anicteric
Moist mucous membranes
No JVD
CTA bilateral
Normal S1-S2 no murmurs
Soft nontender nondistended bowel sounds active
No peripheral pitting edema
Moves extremities spontaneously
AAOx3, uvula deviated to left side, unable to shrug left shoulder, slight movement of left arm, was able to life left leg up off the ground and hold it about 1ft. 4/5 motor strength in left side weaker than the right side. Able to open left eyelid
easily when squeezed tightly
acute cva
mri confimed cva
continue dapt x3 weeks
per neuro stop plavix on 05/16
conitnue hi statin
pt.ot rec air
htn contineu antihypertensives
Non-compliance
Stressed medication compliance
DVT ppx
LMWH
MRI Brain
IMPRESSION: There is a focal area of acute to subacute infarction within the mid to anterior aspect of the right paramedian kennedy.
Region of old infarction involving the right lentiform nucleus and javier radiata. 2 mm focus of old infarction versus prominent perivascular space in the posterior aspect of the left lentiform nucleus.
Two foci of decreased signal intensity on T2 gradient echo sequence, compatible with old hemorrhage as described.
Mild to moderate atrophy, advanced for the patient's age of 59 years. Mild to moderate T2 and FLAIR white matter hyperintensities, commonly seen with aging and usually attributed to small vessel ischemic disease
MRI Neck
IMPRESSION: There is mild motion artifact, slightly limiting resolution.
No significant narrowing identified involving the common carotid arteries, carotid bulbs, or proximal internal carotid arteries bilaterally. No significant narrowing of the cervical or intracranial portions of the internal carotid arteries
bilaterally.
No significant narrowing of the vertebral or basilar arteries.
Percent stenosis is calculated using NASCET criteria.
MRA Head
IMPRESSION: No significant narrowing involving the anterior circulation.
Tortuosity of the superior right vertebral artery. No significant narrowing of the vertebral or basilar arteries.
Asymmetric diminished flow within the distal P2 and P3 branches of the right posterior cerebral artery when compared to the left. Diminished flow within the posterior distal branches of the posterior cerebral arteries bilaterally
Head CT
IMPRESSION:
Small, age-indeterminate infarct within the RIGHT basal ganglia extending into the javier radiata.
Mild periventricular chronic white matter disease.
Anticipated Discharge: 24 - 48 hours
Subjective/Interval History
-
Date of Service: April 29, 2024
seen and examined
was able to shave him self this am
discussed ultrasound findings with his over the phone
Objective Data
-
Vital Signs:
Vital Signs
Temp Pulse Resp BP Pulse Ox
98.7 F 85 18 136/99 93
04/29/24 07:00 04/29/24 06:30 04/29/24 06:30 04/29/24 04:00 04/29/24 06:30
I&O
04/28/24 04/29/24 04/30/24
06:59 06:59 06:59
Intake Total 1475 / 1475 180 / 180
Balance 1475 / 1475 180 / 180
--- NOTE | 2024-04-29 16:09 | PTCARENOTE ---
Pt presents as assessed. Aox3. NIH of 6. NSR on tele monitor. OOB to chair. BP elevated, Dr. Urban aware. Call antonio within reach. Ringing appropriately.
[2024-04-29] MEDS: LIPITOR 40 MG PO (17:53)
[2024-04-29] MEDS: LOVENOX 40 MG SC (17:54)
[2024-04-30] VITALS (13 sets, daily range): BP systolic 122–174; BP diastolic 61–99; PULSE 86; O2SAT 94
[2024-04-30] MEDS: PLAVIX 75 MG PO (08:05)
[2024-04-30] MEDS: COZAAR 25 MG PO (08:05)
[2024-04-30] MEDS: LOW STRENGTH ASPIRIN 81 MG PO (08:05)
--- NOTE | 2024-04-30 09:00 | PTCARENOTE ---
Pt is AAOX3, lungs are clear on roomair at 96%, in a NSR. Pt has L sided weakness . P for [facility] in am. Pt using rw to go to BR with assist one. No CO of pain. no s/s of distress.
--- NOTE | 2024-04-30 10:27 | W.PN.HOSP.TC ---
Today's Communication/Plan
-
for MR
BP ocntrol
Pending AIR
Assessment / Plan
Assessment / Plan
NAD, resting comfortably in bed
Scleral anicteric
Moist mucous membranes
No JVD
CTA bilateral
Normal S1-S2 no murmurs
Soft nontender nondistended bowel sounds active
No peripheral pitting edema
Moves extremities spontaneously
AAOx3, uvula deviated to left side, unable to shrug left shoulder, slight movement of left arm, was able to life left leg up off the ground and hold it about 1ft. 4/5 motor strength in left side weaker than the right side. Able to open left eyelid
easily when squeezed tightly
acute cva
mri confimed cva
continue dapt x3 weeks
per neuro stop plavix on 05/16
conitnue hi statin
pt.ot rec air
htn contineu antihypertensives
Non-compliance
Stressed medication compliance
DVT ppx
LMWH
MRI Brain
IMPRESSION: There is a focal area of acute to subacute infarction within the mid to anterior aspect of the right paramedian kennedy.
Region of old infarction involving the right lentiform nucleus and javier radiata. 2 mm focus of old infarction versus prominent perivascular space in the posterior aspect of the left lentiform nucleus.
Two foci of decreased signal intensity on T2 gradient echo sequence, compatible with old hemorrhage as described.
Mild to moderate atrophy, advanced for the patient's age of 59 years. Mild to moderate T2 and FLAIR white matter hyperintensities, commonly seen with aging and usually attributed to small vessel ischemic disease
MRI Neck
IMPRESSION: There is mild motion artifact, slightly limiting resolution.
No significant narrowing identified involving the common carotid arteries, carotid bulbs, or proximal internal carotid arteries bilaterally. No significant narrowing of the cervical or intracranial portions of the internal carotid arteries
bilaterally.
No significant narrowing of the vertebral or basilar arteries.
Percent stenosis is calculated using NASCET criteria.
MRA Head
IMPRESSION: No significant narrowing involving the anterior circulation.
Tortuosity of the superior right vertebral artery. No significant narrowing of the vertebral or basilar arteries.
Asymmetric diminished flow within the distal P2 and P3 branches of the right posterior cerebral artery when compared to the left. Diminished flow within the posterior distal branches of the posterior cerebral arteries bilaterally
Head CT
IMPRESSION:
Small, age-indeterminate infarct within the RIGHT basal ganglia extending into the javier radiata.
Mild periventricular chronic white matter disease.
Anticipated Discharge: Within 24 hours
Subjective/Interval History
-
Date of Service: April 30, 2024
seen and examiend
no new complaints.
no aucte overnight events.
able to lift left arm a little better today
in good spirits
Objective Data
-
Vital Signs:
Vital Signs
Temp Pulse Resp BP Pulse Ox
98.2 F 83 19 166/85 97
04/30/24 07:00 04/30/24 08:05 04/30/24 06:30 04/30/24 08:05 04/30/24 08:00
I&O
04/29/24 04/30/24 05/01/24
06:59 06:59 06:59
Intake Total 180 / 180 740 / 740
Balance 180 / 180 740 / 740
[2024-04-30] MEDS: LOVENOX 40 MG SC (17:28)
[2024-04-30] MEDS: LIPITOR 40 MG PO (17:28)
[2024-05-01] VITALS (15 sets, daily range): BP systolic 125–173; BP diastolic 63–105; PULSE 97–110; O2SAT 96
[2024-05-01 03:37] LABS: Hematocrit 37.7 % (39.0-52.0); Hemoglobin 12.8 g/dL (13.0-18.0); Mean Corpuscular Hgb 28.1 pg (27.0-31.0); Mean Corpuscular Volume 82.9 fL (80.0-94.0); Platelet Count 175 10^3/uL (130-400); Red Blood Cell Count 4.55 10^6/uL (4.70-6.10); Red Cell Dist. Width 15.9 % (11.5-14.5); White Blood Cell Count 6.2 10^3/uL (4.8-10.8)
[2024-05-01 04:03] LABS: Blood Urea Nitrogen 19 mg/dl (9-20); Calcium 9.3 mg/dl (8.4-10.2); Carbon Dioxide 28 mmol/L (22-30); Chloride 102 mmol/L (98-107); Estimated Creatinine Clearance 83 ml/min; Glucose 123 mg/dl (70-99); Potassium 4.5 mmol/L (3.5-5.1); Sodium 137 mmol/L (135-145); eGFR > 60.00
--- NOTE | 2024-05-01 05:07 | PTCARENOTE ---
NO acute events overnight. NIH of 6. Ambulates to the bathroom with x1 assistance.
[2024-05-01] MEDS: TYLENOL 650 MG PO (08:18)
[2024-05-01] MEDS: LOW STRENGTH ASPIRIN 81 MG PO (08:18)
[2024-05-01] MEDS: COZAAR 25 MG PO (08:18)
[2024-05-01] MEDS: PLAVIX 75 MG PO (08:18)
--- NOTE | 2024-05-01 12:43 | CM ---
Addendum entered by Hellen Scherer RN 05/01/24 15:51:
Received phone message from Insurance; request for [facility] is approved, from 04-29 to 05-06. Last covered date is 05/05. NR 05/06. Fax date of actual admission to [facility] and dates will be adjusted---> CM sent fax stating date of admission is today 05/01.
Spoke with [facility] Lia[facility]; auth info provided. They are able to accept the patient today without waiting for the Physiatry Eval. The for report [phone], fax [phone].
Met with patient and spoke with Xiomara, patient's daughter; they were informed patient is approved and able to go to [facility] today.
Plan [facility] today.
Original Note:
Botswanan/Polish speaking patient with Dx Acute CVA, Hypertensive urgency. Room air. PT & OT recommend acute rehab. Physiatry Consult pending.
Received phone call message from (no name) ) requesting fax confirming that 7 days is requested for [facility].
Spoke with [facility]; CM needs to send fax cover sheet to fax [phone] specifying # of of days requested up to 7 days---> sent.
Plan [facility] once insurance approves.
--- NOTE | 2024-05-01 13:42 | PTCARENOTE ---
Patient is out of bed to chair, no changes in NIHSS score (6). Patient has left sided weakness, close supervision with ambulation with rolling walker. Patient was showered today . Good appetite. Left arm discomfort relieved with Tylenol. Patient is
continent of bowel and bladder had a bowel movement today on toilet.
--- NOTE | 2024-05-01 15:44 | W.PN.HOSP.TC ---
Today's Communication/Plan
-
add Norvasc
Assessment / Plan
Assessment / Plan
59yo M with PMHx of HTN and medication noncompliance admitted with LUE and LLE weakness and found R kennedy acute stroke. Pendsing acute rehab
A/P:
#Acute CVA
Echo with neg bubble study
MRA neck withoput significant ICA, but poor study
Telemetry without Afib
Neurology followed
PT/OT - acute rehab
DAPT (stop Plavix in 21 days) and statin
LDL 128
HgbA1c 6.1
#Essential HTN
imprtove control
DVT ppx Lovenox
Full code
I have spent at least 36min reviewing chart, test resultts and direct patient care
Anticipated Discharge: Within 24 hours
Subjective/Interval History
-
Date of Service: May 01, 2024
Objective Data
-
Labs:
Laboratory Results
05/01/24
03:26
Sodium 137
Potassium 4.5
Chloride 102
Carbon Dioxide 28
BUN 19
Creatinine 1.0
Glucose 123 H
Calcium 9.3
Vital Signs:
Vital Signs
Temp Pulse Resp BP Pulse Ox
97.7 F 72 15 149/93 97
05/01/24 11:20 05/01/24 12:00 05/01/24 12:00 05/01/24 12:00 05/01/24 12:00
I&O
04/30/24 05/01/24 05/02/24
06:59 06:59 06:59
Intake Total 740 / 740 240 / 240 240 / 240
Balance 740 / 740 240 / 240 240 / 240
Physical Exam
-
General: Well Developed and Well Nourished
Respiratory: Clear to Auscultation
Cardiac: Regular Rhythm
GI: Soft, Nontender and Nondistended
Genito-urinary: No Costovertebral Tender
Skin: Warm; Negative Dry
Neuro: Awake, Alert, Oriented and Other (LUE and LLE weakness)
Psych: Calm
--- NOTE | 2024-05-01 16:05 | W.DCSUMMARY ---
Discharge Summary
Discharge Data
Date of Admission: 04/26/24
Date of Discharge: 05/01/24
-
Pending Results: No
Hospital Course
59yo M with PMHx of HTN and medication noncompliance admitted with LUE and LLE weakness and found R kennedy acute stroke. Accepted to acute rehab. MEdically stable and agreeable with D/C. I have spent at least 36min preparing discharge
A/P:
#Acute CVA
#PreDM
#Essential HTN
Discharge Plan
-
Patient Disposition: Acute Rehab Facility
Discharge Diagnosis/Procedures: CVA
Diet: Low Sodium
Activity: As tolerated
Referrals:
Sylvester Gonsales MD [Active] - in two to four weeks
Lili Neff MD [Family Provider] -
Prescriptions:
New
atorvastatin 40 mg Tablet
40 mg PO QPM 30 Days Qty: 30 0RF
losartan 25 mg Tablet
25 mg PO DAILY 30 Days Qty: 30 0RF
amlodipine 2.5 mg Tablet
2.5 mg PO DAILY 30 Days Qty: 30 0RF
clopidogrel 75 mg Tablet
75 mg PO DAILY 20 Days Qty: 20 0RF
aspirin 81 mg Tablet,Chewable
81 mg PO DAILY Qty: 30 0RF
Discharge Orders:
Discharge Patient (As Directed); Ordered 05/01/24
Ordered By: Kevin Crump
Discharge Date and Time
Print Language: TAMAZIGHT
--- NOTE | 2024-05-01 16:13 | PTCARENOTE ---
Addendum entered by Sommer Donaldson RN 05/01/24 16:31:
@ bags of belongings sent with patient, eye glasses, cell phone and branch or department chief librarian sent with patient.
Original Note:
Report [facility] to [facility]. Patient notified of plan of care, excited about the transfer.
== END 2024-05-01 16:28 | DRG 66 ==
LOC: IMU 15:28
PROVIDERS: ADMITTING PHYSICIAN Hospitalist; ATTENDING PHYSICIAN Internal Medicine; CONSULT PHYSICIAN Student in an Organized Health Care Education/Training Program; EMERGENCY PHYSICIAN Student in an Organized Health Care Education/Training Program; FAMILY PHYSICIAN Internal Medicine
DX: I63.29 Cerebral infarction due to unspecified occlusion or stenosis of other precerebral arteries (principal); R53.1 Weakness; R29.701 NIHSS score 1; I16.0 Hypertensive urgency; I10 Essential (primary) hypertension; Z91.148 Patient's other noncompliance with medication regimen for other reason; R73.03 Prediabetes
CPT/HCPCS: 70450; 70544; 70548; 70551; 80048; 80053; 80061; 82077; 82962; 83036; 84484; 85025; 85027; 85610; 85730; 92523; 92610; 93005; 93306; 96374; 97110; 97116; 97163; 97167; 97530; 97535; 99291; A9585; Q9950

== ENCOUNTER → 2024-07-14 09:32 | Outpatient (REF) | payer BC, SELFPAY | LOC: RAD 09:32 | PROVIDERS: ATTENDING PHYSICIAN Nurse Practitioner Adult Health; FAMILY PHYSICIAN Internal Medicine | DX: M25.512 Pain in left shoulder (principal) | CPT/HCPCS: 73030 ==

== ENCOUNTER → 2024-11-21 09:05 | Outpatient (REF) | payer OTHER, SELFPAY ==
[2024-11-21 11:02] LABS: % Basophils 0.6 % (0-2); % Eosinophils 2.6 % (0-6); % Immature Granulocytes 0.5 % (0-0.5); % Lymphocytes 21.9 % (20.5-51.1); % Monocytes 11.6 % (1.7-9.3); % Neutrophils 62.8 % (42.2-75.2); Absolute Eosinophils 0.2 10^3/uL (0-0.7); Absolute Lymphocytes 1.4 10^3/uL (1.2-3.4); Absolute Monocytes 0.8 10^3/uL (0.1-0.6); Absolute Neutrophils 4.1 10^3/uL (1.4-6.5); Hemoglobin 14.2 g/dL (13.0-18.0); Mean Corp Hgb Conc. 33.8 g/dL (33.0-37.0); Mean Corpuscular Hgb 30.6 pg (27.0-31.0); Mean Corpuscular Volume 90.5 fL (80.0-94.0); Mean Platelet Volume 9.2 fL (7.4-10.4); Nucleated Red Blood Cells % 0 % (-); Platelet Count 209 10^3/uL (130-400); Red Blood Cell Count 4.64 10^6/uL (4.70-6.10); Red Cell Dist. Width 12.7 % (11.5-14.5); White Blood Cell Count 6.5 10^3/uL (4.8-10.8)
[2024-11-21 11:38] LABS: Glycohemoglobin (HgbA1c) 6.5 % (4.0-5.6)
[2024-11-21 12:22] LABS: TSH Reflex To Free T4 3.63 uIU/ml (0.47-4.68)
[2024-11-21 17:23] LABS: ALT (SGPT) 28 U/L (0-50); AST (SGOT) 30 U/L (17-59); Albumin 4.9 g/dl (3.5-5.0); Alkaline Phosphatase 74 U/L (38-126); Blood Urea Nitrogen 11 mg/dl (9-20); Calcium 9.8 mg/dl (8.4-10.2); Carbon Dioxide 24 mmol/L (22-30); Chloride 102 mmol/L (98-107); Glucose 122 mg/dl (70-99); HDL Cholesterol 41 mg/dl; LDL Cholesterol, Calculated 127 mg/dl; Potassium 4.5 mmol/L (3.5-5.1); Sodium 140 mmol/L (135-145); Total Bilirubin 0.9 mg/dl (0.2-1.3); Total Cholesterol 206 mg/dl (50-199); Total Protein 7.3 g/dl (6.3-8.2); Triglyceride 191 mg/dl (10-149); Very Low Density Lipoprotein 38 mg/dl (0-30); eGFR > 60.00
== END ==
LOC: REG 09:05
PROVIDERS: ATTENDING PHYSICIAN Internal Medicine
DX: I63.49 Cerebral infarction due to embolism of other cerebral artery (principal); R73.03 Prediabetes; I10 Essential (primary) hypertension; E78.2 Mixed hyperlipidemia
CPT/HCPCS: 36415; 80053; 80061; 83036; 84443; 85025

== ENCOUNTER → 2024-12-07 11:39 | Outpatient (REF) | payer OTHER, SELFPAY | LOC: RAD 11:39 | PROVIDERS: ATTENDING PHYSICIAN Internal Medicine | DX: M25.512 Pain in left shoulder (principal) | CPT/HCPCS: 73030 ==